=== PATIENT | male | born 1990 | race Caucasian/White ===

== ENCOUNTER 2021-11-28 15:27 | Inpatient (IN) ==
--- NOTE | 2021-11-28 16:32 | XRay Report ---
XR hand LT min 3V routine CLINICAL HISTORY: possible amputation to left hand. Left index finger injury. COMPARISON STUDY: None. FINDINGS: Comminuted and displaced fractures involving the base of the middle phalanx and head of the proximal phalanx of the left index finger. There is ulnar dislocation at the PIP joint of the left i ndex finger. There is associated soft tissue laceration at this location. Remaining fingers appear in tact. No radiopaque foreign bodies. IMPRESSION: Fracture/dislocation at the PIP joint of the left index finger as described above. ACT 112: Negative or not required by law. Electronically signed by: David Porter M.D. 11/28/2021 4:31 PM
[2021-11-28] MEDS ORDERED: ceFAZolin 2000MG 2,000 MG/15 ML SYR IV STA (16:39)
[2021-11-28] MEDS ORDERED: DIPHTHERIA/TETANUS/PERTUSSIS 0.5 ML SYR/VIAL IM ONE (16:39)
[2021-11-28] MEDS ORDERED: HYDROmorphone INJ 0.5 MG/0.5 ML SYR IV STA (17:04)
[2021-11-28] MEDS ORDERED: GELATIN SPONGE 12-7MM ONE (17:20)
--- NOTE | 2021-11-28 17:27 | Emergency Department Note ---
Impression & Plan Fracture of phalanx of left index finger ED Provider Note CHIEF COMPLAINT: Left finger laceration HISTORY OF PRESENT ILLNESS: Gerry Santiago is a 31 year old right hand dominant male who presents to the Emergency Department for evaluation of a laceration to the second digit on his left hand which he sustained when he accidentally slipped while using a large saw to cut wood just prior to arrival. He did note a moderate amount of bleeding from the wound which he was eventually able to control after wrapping it with a towel. Currently, he rates his discomfort as a 2/10 which was improved after taking a dose of ibuprofen prior to arrival. He does have sensation in his finger tip distal to the wound but he is unable to move it. He denies sustaining any other wounds or injuries during the episode. No other acute complaints. The patient states that he last had a tetanus booster about 8 years prior. REVIEW OF SYSTEMS: 10 systems were reviewed and were negative unless otherwise stated in HPI as above PHYSICAL EXAM: VITALS: Vitals are noted on the nurse's note and reviewed by myself. Vital signs stable. General: Resting in bed, no acute distress Head/Eyes: Normocephalic, atraumatic, PERRL, EOMI MSK/Integumentary: With attention to the LUE, there is a 3 cm macerated lacerati on to the 2nd digit extending over the PIP with visible bone and slow ooze of blood. Sensation intact distal to the wound, capillary refill <3 seconds. Unable to move the 2nd digit. No other appreciable wounds, moving all other digits, hand and remainder of the LUE without apparent pain or difficulty Neuro: Awake, alert and oriented x 3, interacting and answering questions appropriately Differential diagnosis includes fracture, subluxation, dislocation, ligamentous injury, neurovascular, as well as other pathologies were considered. EMERGENCY DEPARTMENT COURSE: Physical exam and history were performed. Nursing triage notes, EMR, and medication list were personally reviewed. Patient appears to have sustained a laceration to the second digit of his left hand when he accidentally slipped while using a large saw to cut wood just prior to arrival. He last received a tetanus booster about 8 years prior. Additional history as described above. On exam, he was resting in bed, no acute distress. With attention to the LUE, there was a 3 cm macerated laceration to the second digit extending over the PIP with visible bone and slow ooze of blood consistent with open fracture. Sensation was intact distal to the wound, capillary refill <3 seconds. He was unable to move the second digit. He did not have any other appreciable wounds he was moving all her digits and hand without apparent pain or difficulty. No other significant findings on exam as above. IV access was established. The patient was given Ancef 2 g and Dilaudid 0.5 mg. His tetanus status was also updated. I did contact Chris Thomas PA-C who is currently working with Dr. Mendenhall of [facility]. They immediately arrived to bedside. After there examination, they recommended surgical intervention, to which the patient consented. The patient was then taken to the operating room for further management and disposition thereafter. The patient verbalized his understanding and agreement with the treatment plan as above. The chart was completed utilizing [employer] Speech Voice Recognition Software. Grammatical errors, random word insertions, pronoun errors, and incomplete sentences are an occasional consequence of this system due to software limitations, ambient noise, and hardware issues. Any formal questions or concerns about the content, text, or information contained within the body of this dictation should be directly addressed to the provider for clarification. Past Med/Surg History Medical History Breathlessness lying flat Heartburn Migraine Surgical History No pertinent past surgical history Family History (Updated 11/28/21 @ 17:57 by Chris Thomas PA-C) Other No pertinent family history Social History Smoking Status: Current every day smoker Tobacco Type: Pipe Hx Alcohol Use: No Hx Substance Use: No Preferred Language: Mosotho Hearing Ability: Normal Beliefs That Will Affect Care: Muslim Muslim Beliefs: shinto marital status: Current Living Situation: Spouse current occupational status: employed Feels Safe at Home: Yes Allergies Allergies Allergy/AdvReac Type Severity Reaction Status Date / Time No Known Allergies Allergy Unverified 02/03/14 18:10 Home Meds Home Medications Medication Instructions Recorded Confirmed None (Patient States No Home Meds) #0 02/03/14 Previous Rx's Medication Instructions Recorded CIPROFLOXACIN HCL (CIPRO) 500 mg PO BID 7 Days #0 02/03/14 Results & Data (ED) Vital Signs Vital Signs - 24 hr 11/28/21 16:06 11/28/21 17:29 11/28/21 18:01 Temperature 36.5 C Temperature Source Temporal Artery Scan Pulse Rate 79 Pulse Rate [Finger] 68 61 Pulse Rhythm Regular Respiratory Rate 18 16 19 Respiratory Effort / Characteristics Non-Labored Non-Labored Spontaneous Non-Labored Spontaneous Respiratory Depth Normal Normal Normal Respiratory Pattern Regular Blood Pressure 154/77 H Blood Pressure [Right Arm] 152/85 H 106/76 Blood Pressure Mean 102 Blood Pressure Mean [Right Arm] 107 86 Pulse Oximetry 95 97 97 Oxygen Delivery Method Room Air Room Air Room Air Sepsis Recent Fever Within 48 Hours No Sepsis New/Unexplained Change in Mental Status No Sepsis Action Taken by Nursing No Action Required Laboratory Data Lab Results 11/28/21 Range/Units 17:30 SARS-CoV-2, RNA, NAAT NEGATIVE (NEGATIVE) Administered Medications Discontinued Medications Diphtheria/Pertussis/Tetanus Vacc (Diphtheria/Tetanus/Pertussis 0.5 Ml Syr/Vial) 0.5 ml IM .ONCE ONE Stop: 11/28/21 16:40 Last Admin: 11/28/21 16:56 Dose: 0.5 ml Documented by: [id number] Gelatin (Gelatin Sponge 12-7mm) Confirm Administered Dose 1 ea .ROUTE .STK-MED ONE Stop: 11/28/21 17:21 Last Admin: 11/28/21 17:23 Dose: 1 ea Documented by: [id number] Hydromorphone HCl (Hydromorphone Inj 0.5 Mg/0.5 Ml Syr) 0.5 mg IV NOW STA Stop: 11/28/21 17:05 Last Admin: 11/28/21 17:07 Dose: 0.5 mg Documented by: [id number] Cefazolin Sodium (Ancef 2000mg) 2,000 mg in 15 mls @ 3.75 mls/min IV NOW STA Stop: 11/28/21 16:42 Last Admin: 11/28/21 17:04 Dose: 3.75 mls/min Documented by: [id number] Imaging Data Radiologist's Impression: Hand X-Ray 11/28/21 16:12 XR hand LT min 3V routine CLINICAL HISTORY: possible amputation to left hand. Left index finger injury. COMPARISON STUDY: None. FINDINGS: Comminuted and displaced fractures involving the base of the middle phalanx and head of the proximal phalanx of the left index finger. There is ulnar dislocation at the PIP joint of the left index finger. There is associated soft tissue laceration at this location. Remaining fingers appear intact. No radiopaque foreign bodies. IMPRESSION: Fracture/dislocation at the PIP joint of the left index finger as described above. ACT 112: Negative or not required by law. Electronically signed by: David Porter M.D. 11/28/2021 4:31 PM Discharge Plan Visit Data Chief Complaint: Laceration/Cut (Suture/Dermabond) Stated Complaint: LAC ON LT HAND ED Provider: Gurinder Bahena ED Midlevel Provider: Jenae Seth Patient Disposition: Being Evaluated by Surgeon Forms Stand Alone Forms: [employer] [facility] [employer] Prescriptions Prescriptions: No Action None (Patient States No Home Meds) . Qty: 0 RF: 0 CIPROFLOXACIN HCL (CIPRO) 500 MG tablet 500 mg PO BID 7 Days Qty: 0 RF: 0 Referrals Referrals: PCP,NO [Primary Care Provider] -
--- NOTE | 2021-11-28 17:51 | Anesthesiology Consultation ---
Date of Service November 28, 2021 Assessment & Plan (1) Encounter for pre-operative examination: Chart Review Chart Review: Acceptable Risk for Surgery and Patient NOT seen in Pre Admission Testing Consults Requested none History Surgery Operation Date: 11/28/21 17:45 Proposed Procedures p Amputation Finger(Left) - Sam Mendenhall MD Height/Weight Height: 5 ft 8 in Weight: 94.6 kg Allergies Allergy/AdvReac Type Severity Reaction Status Date / Time No Known Allergies Allergy Unverified 02/03/14 18:10 Medications Home Medications Medication Instructions Recorded Confirmed Last Taken CIPROFLOXACIN HCL (CIPRO) 500 mg PO BID 7 Days #0 02/03/14 Unknown None (Patient States No Home Meds) #0 02/03/14 Unknown Social History Smoking Status: Current every day smoker Physical Exam Vital Signs Last Vital Signs Temp 97.7 F 11/28/21 16:06 Pulse 68 11/28/21 17:29 Resp 16 11/28/21 17:29 BP 152/85 H 11/28/21 17:29 Pulse Ox 97 11/28/21 17:29
--- NOTE | 2021-11-28 18:06 | History & Physical Report ---
Date of Service November 28, 2021 Assessment & Plan (1) Fracture of phalanx of left index finger: Plan: IV has already been established. Patient's tetanus has been updated. He has been given Ancef IV in the ED. He last ate at noon and states he had a full lunch. He did have a glass of water just prior to coming to the ED. This was just over an hour ago. Patient does admit to history of shortness of breath when he lies flat. He states it occurs occasionally, but has not happened for several months. He has never been worked up for it. He is a daily pipe smoker, but does not think it is related. He states he has also had some episodes of chest pain in the past. He states it was infrequent and may have occurred once a month. It also has not happened for several months. Options for treatment of the index finger were reviewed thoroughly with him, by Dr. Mendenhall. Options of trying to salvage the finger, completion of the amputation, as well as risks of both, were discussed. Patient elected to proceed with amputation due to speed of recovery and the risk of a stiff and nonfunctioning finger if he elected salvage. His was present for this discussion. He will remain n.p.o. Covid test has been ordered. History of Present Illness Chief Complaint: Left hand laceration and deformity Primary Care Provider: NO PCP This 31-year-old male presents today with his , for evaluation of his left hand. He is seen in the ED. Patient states he accidentally pushed his hand into the blade at his sawmill, and sustained a laceration and deformity of the index finger. No other fingers are involved. He states the board did not kick. He simply was not paying attention to where his hand was. His last tetanus is unknown. He notes numbness in the index finger. He denies loss of sensation in the other digits. No other complaints. [id number]. Allergies Allergy/AdvReac Type Severity Reaction Status Date / Time No Known Allergies Allergy Unverified 02/03/14 18:10 Home Medications Medication Instructions Recorded Confirmed Type CIPROFLOXACIN HCL (CIPRO) 500 mg PO BID 7 Days #0 02/03/14 Rx None (Patient States No Home Meds) #0 02/03/14 History Past Med/Surg History Medical History (Updated 03/30/22 @ 18:02 by Chris Thomas PA-C) Breathlessness lying flat Heartburn Migraine Surgical History (Updated 11/28/21 @ 17:57 by Chris Thomas PA-C) No pertinent past surgical history Family History (Updated 11/28/21 @ 17:57 by Chris Thomas PA-C) Other No pertinent family history Social History (Updated 11/28/21 @ 17:58 by Chris Thomas PA-C) Smoking Status: Current every day smoker Tobacco Type: Pipe Hx Alcohol Use: No Hx Substance Use: No Preferred Language: Serbian Hearing Ability: Normal Beliefs That Will Affect Care: Mosque Mosque Beliefs: [facility] marital status: Current Living Situation: Spouse current occupational status: employed Feels Safe at Home: Yes Review of Systems Review of Systems: All systems reviewed & are unremarkable except as noted in HPI & below A total of 10 systems were reviewed. Physical Exam Physical Exam: General: Well-developed, well-nourished, young white male, in obvious discomfort. No acute distress. Laying on the bed. Alert and oriented. Skin: Warm and dry with good turgor. No rashes. Patient has a large laceration with active bleeding on the radial aspect of his index finger. Bone is exposed. The other digits are spared. HEENT: Normocephalic atraumatic. Eyes PERRLA, EOMI. No conjunctiva or scleral injection. Nares patent bilaterally without turbinate enlargement. No significant drainage. No epistaxis. Oropharynx without erythema or exudate. Uvula midline, oral mucosa moist. No lesions present. Upper dentures are present. Heart: Heart RRR. No MGR. Peripheral pulses are 2+. Lungs: Lungs are clear to auscultation. No crackles rhonchi or wheezing. Good air movement. The patient is able to take a deep breath. Abdomen: Abdomen was inspected, auscultated, and palpated. Bowel sounds present x 4. Soft, nontender to palpation. No hepato-splenomegaly. No masses noted. No rebound. Musculoskeletal: Patient has intact motor function to his thumb, long, ring, and little fingers of the left hand. He has intact flexion to the DIP joint of the index finger, with pain. He lacks extension to the index finger. There is a large amount of tissue missing from the radial aspect of the index finger. Bleeding is active. It is ulnarly deviated secondary to the loss of tissue. Neurologic: Patient has intact sensation to the thumb, long, ring, and little f ingers. Sensation is normal. He lacks normal sensation to the index finger. There is blunted sensation on the ulnar tip, and absent sensation on the radial aspect. Capillary refill is equal to the other digits. Results & Data Results & Data ([facility]) Vital Signs (Past 12 Hours) Vital Signs Temp Pulse Pulse Resp BP BP Pulse Ox 11/28/21 17:29 68 16 152/85 H 97 11/28/21 16:06 36.5 C 79 18 154/77 H 95 Diagnostic Findings Radiographic imaging previous obtained of the left hand shows an open fracture of the index finger at the PIP joint. There is bone loss as well as comminution. Code Status & VTE Plan VTE Prophylaxis Plan VTE Prophylaxis will be ordered: Yes
--- NOTE | 2021-11-28 18:13 | Progress Notes ---
DATE OF SERVICE: 11/28/2021. The patient is seen in conjunction with Chris Thomas. For further details, refer to his dictation. He and I saw and evaluated together. I am in agreement with the plan. Mr. Santiago is 31 years old, right hand dominant. He injured the left index finger when he was ca ught in a large saw earlier today. He has just received tetanus and was receiving antibiotics. His past medical history is significant for Lyme disease. He had a laceration of his left shoulder, but he has never had surgery and denies having any allergies. He denies any chronic medical problems. Examination of his left hand reveals after cleaning up the hand at the thumb, long, ring, and little fingers are uninvolved. There is a large laceration beginning just proximal to the PIP joint on the radial side of the left index finger, which courses dorsally. The metacarpal head was exposed and pa rt of the articular surface has been traumatically removed. There is an active pumper distally and d orsally, which we attempted to electrocauterize without benefit. Then applied Gelfoam and pressure w ith a covered bandage. He has diminished sensation on the radial side. Intact sensation on the ulna r side. The laceration is probably 4 cm in length. There appears to be some degree of tissue loss. It is about 2 cm wide. He can slightly flex the tip of the finger, but has difficulty with extensio n. There is capillary refill intact to the index finger. The radiographs show a comminuted fracture involving the proximal interphalangeal joint of the left i ndex finger with some degree of bone loss. The impression is that the patient has a comminuted open fracture of the left index finger proximal i nterphalangeal joint with a dislocation and soft tissue loss. There is also likely neurovascular and tendon injury. Technically, this would potentially be a grade III open fracture as there may not be adequate soft tissue coverage for closure due to tissue loss. PLAN: My findings were discussed with the patient and his . We presented him with several optio ns, one of which is to be transferred to a tertiary care medical center where he may receive expertis e and advanced hand care for potential salvage of the finger, which would include reconstruction of t he bone, tendons, nerves, arteries, etc. This may involve multiple procedures. It may involve exten sive rehabilitation and increased expenses. It may result in a stiff finger. It may not even be pos sible. The other option we presented him with is a possibility of amputation, which he himself raise d. That would be a more cost effective and quicker recovery for him with less therapy and risk. We talked about the pros and cons, the risks and benefits and he elected to proceed with having the fing er amputated. We may need to shorten it beyond the proximal phalangeal head in order to get adequate soft tissue coverage, which I discussed with him. There could be issues with wound problems or pain. I recommend that he stay in the hospital for at least 24 hours after the surgery to have IV antibio tics. He has received tetanus and antibiotics here. He will be made n.p.o. and taken to the operati ng room urgently when the room is available here. An informed consent was obtained. No history of b leeding, blood clots, metal allergies or MRSA. Job ID: [id number]
[2021-11-28] MEDS ORDERED: SUCCINYLCHOLINE CHLORIDE 20 MG/ML 10 ML VIAL IV ONE (18:21)
[2021-11-28] MEDS ORDERED: ONDANSETRON INJ 2 MG/ML 2 ML VIAL ONE (18:21)
[2021-11-28] MEDS ORDERED: DEXAMETHASONE SOD INJ 4 MG/ML VIAL ONE (18:21)
[2021-11-28] MEDS ORDERED: PROPOFOL IV EMULSION 10 MG/ML 20 ML VIAL IV ONE (18:21)
[2021-11-28] MEDS ORDERED: fentaNYL citrate 100 MCG/2 ML VIAL ONE (18:21)
[2021-11-28] MEDS ORDERED: MIDAZOLAM HCL 1 MG/ML 2ML VIAL ONE (18:21)
[2021-11-28] MEDS ORDERED: LIDOCAINE 2% 2 ML VIAL/AMP(20MG/ML) INFIL ONE (18:21)
[2021-11-28] MEDS ORDERED: ROCURONIUM BROMIDE 10 MG/ML 5 ML VIAL IV ONE (18:21)
[2021-11-28] MEDS ORDERED: ePHEDrine sulfate 50 MG/ML AMP IV PRN (18:32)
[2021-11-28] MEDS ORDERED: ATROPINE SULFATE 0.1 MG/ML 10ML SYR IV PRN (18:32)
[2021-11-28] MEDS ORDERED: ONDANSETRON INJ 2 MG/ML 2 ML VIAL IV PRN ×2 (18:32→21:42)
[2021-11-28] MEDS ORDERED: fentaNYL citrate 100 MCG/2 ML VIAL IV PRN (18:32)
[2021-11-28] MEDS ORDERED: BUPIVACAINE 0.5 % 5 MG/1 ML MPF 30ML VIAL ONE (18:46)
[2021-11-28] MEDS ORDERED: LIDOCAINE 1% LOCAL 20 ML VIAL ONE (18:46)
--- NOTE | 2021-11-28 19:54 | Fluoroscopy Report ---
FL finger LT 2V CLINICAL HISTORY: LT INDEX FINGER AMPUTATION COMPARISON STUDY: Left hand 11/28/2021. FLUOROSCOPY TIME: 1 second. FINDINGS: Single fluoroscopic spot image of the left index finger demonstrates amputation at the neck of the proximal phalanx. IMPRESSION: Fluoroscopic assistance provided for amputation at the neck of the left index finger prox imal phalanx. ACT 112: Negative or not required by law. Electronically signed by: David Porter M.D. 11/28/2021 7:52 PM
--- NOTE | 2021-11-28 20:21 | Operative Report ---
Post Operative Report Pre & Post Diagnosis Operation Date: 11/28/21 17:45 Pre-Op Diagnosis: Open fracture of left index finger proximal interphalangeal joint with 5 cm x 2- 1/2 cm wound and a probable insufficient soft tissue coverage. Post-Op Diagnosis: Same I identified the patient and participated in the time-out.: Yes Procedure Operation Date: 11/28/21 17:45 Actual Procedures p irrigation and debridement, amputation Finger, Left Index(Left) - Sam Mendenhall MD Surgeon Sam Mendenhall MD Survey Questionnaire Designer Chris Thomas physicians pharmacist assistant no resident or fellow available Estimated Blood Loss 5 Findings Consistent with Post-Op Diagnosis Specimens Amputated left index finger Anesthesia Type General Regional Complications none Disposition Accompanied Patient To Recovery: No Disposition: Recovery Room Indications The patient is 31. He sustained a industrial saw accident to his left index finger when he slipped. He has a large wound on the radial aspect of his left index finger at the level of the PIP joint. This is approximately 5 x 3 cm with soft tissue loss open fracture of the PIP joint with bone loss and comminution. There is likely extensor tendon loss as well although flexor function appears to be intact. We talked about salvaging the finger which would involve more complex surgery and rehabilitation if at all possible. I offered transfer to a tertiary care center with a hand specialist. We talked about the pros and cons and he wished to proceed with a more simpler option which was to amputate the finger. Description of Procedure Informed consent obtained. Patient identified. He identified the operative site as the left index finger. I marked with my initials. A preoperative surgical timeout was performed. A preop dose of antibiotics was given. He was taken to the operating room positioned supine on the operating room table. The left arm suspended on a hand table and a tourniquet was applied to the left upp er arm. There was pulsatile bleeding from the distal dorsal portion of the wound upon removing the dressing. The hand was prescrubbed with Betadine and fingernails were cleaned. We then prepped with Betadine and then draped in a sterile fashion as usual. The limb was then exsanguinated and tourniquet inflated 250 mmHg. The examination revealed a 5 cm long x2-1/2 to 3 cm wide soft tissue laceration over the radial aspect of the left index finger. There appeared to be inadequate soft tissue coverage for a general closure as some of the tissue appeared to be lost. There is also a substantial bone loss. DVT prophylaxis was not indicated. He received tetanus and IV antibiotics. There was good capillary refill in the distal digit although it was grossly unstable due to the complex fracture. There were fragments of the articular surface of the PIP joint somewhat loose through the wound. These were debrided. The proximal radial corner of the middle phalanx including its articular surface was completely absent and this carried up the shaft for about 1 cm. The head of the proximal phalanx was fractured and completely from the proximal portion with some comminution and bone loss. The extensor tendon was segmentally absent. The flexor tendons appeared to be intact. Given the appearance I think amputation is favored over a complex reconstruction with deficient soft tissue coverage. I removed the bone fragments. The proximal phalanx was amputated just proximal to the volar flare of the condyle and then trimmed to remove any bony prominences. Subperiosteal exposure of this part of the bone was performed. I then made an incision down the dorsal radial border of the finger down to the level of the DIP joint and then circumferentially went around the finger. I then filleted out the middle phalanx in subperiosteal fashion and amputated the finger tuft distal phalanx and middle phalanx is 1 piece sent for specimen. I then dissected out the flexor tendons back to the level of the volar plate. I then transected the flexor tendons just proximal to the volar plate. Margins of the wound were debrided. There were irregular edges which were sharply debrided with scissors and scalpel. Any gross contamination which there was very little of was removed as encountered. Irrigation with about 500 cc of Betadine lavage followed by a liter and a half of pulsatile lavage was performed. There was adequate soft tissue to cover. I reapproximated the proximal radial portion of the laceration. I was then able to convert the rest of the wound to a simple foot [place] bringing the palmar tissues dorsally to reapproximate dorsally. The skin edges were trimmed medially and laterally and the remaining distal tissue was resected. After reapproximating the tourniquet was let down and meticulous hemostasis was performed. Irrigation was again performed and then the skin was closed in a complete and tension-free fashion using 4-0 nylon with simple sutures and horizontal mattress stitches. The finger was anesthetized with a mixture of 0.5% Marcaine and 1% plain lidocaine. The hand was cleaned with wet and dry sponges and a bulky soft sterile dressing was applied Xeroform 4 x 4's soft wrap and Grzegorz wrap. Patient awakened from anesthesia without difficulty taken to recovery in stable condition. The resected finger was sent for specimen. Counts were correct blood loss is estimated to be 5 cc. At the conclusion the operation spoke to patient's informed her of my findings and postop instructions were given. Oil Derrick Operator fluoroscopic image was obtained after the amputation. Several pictures were obtained prior to the start of the procedure. He will be admitted to the hospital for pain control and intravenous antibiotics. There is good refill in the flap. The digital nerves were dissected out and transected at the level of the bone and allowed to retract. I attest to the content of the Intraoperative Record and any orders documented therein. Any exceptions are noted below.
--- NOTE | 2021-11-28 20:26 | Operative Report ---
Post Operative Report Pre & Post Diagnosis Operation Date: 11/28/21 17:45 Pre-Op Diagnosis: Laceration On Left Hand Post-Op Diagnosis: Laceration On Left Hand I identified the patient and participated in the time-out.: Yes Procedure Operation Date: 11/28/21 17:45 Actual Procedures p Amputation Finger, Left Index(Left) - Sam Mendenhall MD Surgeon JOSUE Mendenhall MD [employer] Chris Thomas physician assistant clinical nurse manager no resident or fellow available Estimated Blood Loss 5 Findings Consistent with Post-Op Diagnosis see operative report Specimens see operative report Drains none Complications none Disposition Accompanied Patient To Recovery: Yes Indications This 31-year-old male presented through the ED, for evaluation of a left hand injury sustained on a sawmill. Patient was educated regarding risks, and benefits of surgery. He elected to proceed with surgical intervention. Preoperative imaging was obtained. Description of Procedure Patient was taken to the operating room where he was given general anesthesia. He was also given a local digital block. He was prepped and draped in the usual sterile fashion. Please see Dr. Mendenhall's operative report for specifics of the procedure. I was present for the entire case from initial patient positioning through final wound closure. Assistance was provided in tissue retraction, hemostasis, revision of the amputation, and final wound closure. Patient was taken to the recovery room in satisfactory condition. I attest to the content of the Intraoperative Record and any orders documented therein. Any exceptions are noted below.
--- NOTE | 2021-11-28 21:27 | Anesthesiology Progress Note ---
Date of Service November 28, 2021 Anesthesia Post Procedure Vital Signs Vital Signs: Temp Pulse Pulse Pulse Resp BP BP 11/28/21 21:20 62 16 134/83 11/28/21 21:10 62 16 134/83 11/28/21 21:00 97.5 F L 61 16 138/79 11/28/21 20:50 65 16 143/85 H 11/28/21 20:40 70 16 132/87 11/28/21 20:30 73 16 141/78 H 11/28/21 20:23 97.3 F L 73 16 140/79 11/28/21 18:23 99.1 F 63 14 151/82 H 11/28/21 18:01 61 19 106/76 11/28/21 17:29 68 16 152/85 H 11/28/21 16:06 97.7 F 79 18 154/77 H Pulse Ox 11/28/21 21:20 98 11/28/21 21:10 98 11/28/21 21:00 97 11/28/21 20:50 97 11/28/21 20:40 98 11/28/21 20:30 99 11/28/21 20:23 97 11/28/21 18:23 98 11/28/21 18:01 97 11/28/21 17:29 97 11/28/21 16:06 95 Pain Intensity Left 2nd Digit: Pain Intensity: 2 Transfer of Care Handoff Completed per policy Notes Mental Status: alert / awake / arousable and participated in evaluation Patient Amnestic to Procedure: Yes Nausea / Vomiting: adequately controlled Pain: adequately controlled Airway Patency, RR, SpO2: stable & adequate BP & HR: stable & adequate Hydration State: stable & adequate Anesthetic Complications: no major complications apparent and Pt Satisfied with anesthetic care
[2021-11-28] MEDS ORDERED: SENNA 8.6 MG TAB PO SCH (21:42)
[2021-11-28] MEDS ORDERED: SODIUM CHLORIDE 0.9% 1000ML 1,000 ML IV SCH (21:42)
[2021-11-28] MEDS ORDERED: HYDROmorphone INJ 0.5 MG/0.5 ML SYR IV PRN (21:42)
[2021-11-28] MEDS ORDERED: METOCLOPRAMIDE HCL INJ 5 MG/ML 2 ML VIAL IV PRN (21:42)
[2021-11-28] MEDS ORDERED: KETOROLAC 30 MG/ML VIAL IV PRN (21:42)
[2021-11-28] MEDS ORDERED: NALOXONE HCL 0.4 MG/1 ML VIAL/CARP IV PRN (21:42)
[2021-11-28] MEDS ORDERED: diphenhydrAMINE Capsule 25 MG CAP PO PRN (21:42)
[2021-11-28] MEDS ORDERED: ALUMINUM/MAGNESIUM SUSP 30 ML UDC PO PRN (21:42)
[2021-11-28] MEDS ORDERED: traMADol HCL 50 MG TABLET PO PRN (21:42)
[2021-11-28] MEDS ORDERED: MAGNESIUM HYDROXIDE SUSP 30 ML UDC PO PRN (21:42)
[2021-11-28] MEDS ORDERED: bisacodyL 10 MG SUPP PR PRN (21:42)
[2021-11-28] MEDS: DOCUSATE SODIUM 100 MG CAP PO SCH (23:06)
[2021-11-28] MEDS: oxyCODONE HCL IR 5 MG TAB (IMMEDIATE RELEASE) PO PRN (23:14)
[2021-11-29] MEDS ORDERED: ceFAZolin 1000MG 1,000 MG/7.5 ML SYR IV SCH
[2021-11-29] MEDS: ceFAZolin 2000MG 2,000 MG/15 ML SYR IV SCH ×2 (07:42→14:26)
[2021-11-29] MEDS: DOCUSATE SODIUM 100 MG CAP PO SCH (07:50)
[2021-11-29] MEDS ORDERED: MULTIVITAMIN TAB PO SCH (09:00)
--- NOTE | 2021-11-29 09:57 | Orthopedic Progress Note ---
Date of Service November 29, 2021 Assessment & Plan (1) Status post amputation of finger of left hand: Plan: Patient received his last dose of antibiotics at 742 this morning. His next dose should be around 4 PM. Patient would like to go home after it is administered. I will speak with Dr. Mendenhall about this. He will evaluate the patient later today. Continue with elevation for edema and pain control Follow-up in the office in 2 weeks for suture removal. Admission and Anticipated Discharge Date Admission Date: November 28, 2021 Subjective Patient is seen in his room this morning. He has no complaints. He states his hand feels fine. He has no pain. He would like to go home today. He denies any shortness of breath, nausea, vomiting, or abdominal pain. Review of Systems Review of Systems: Unchanged from yesterday. Physical Exam Physical Exam: General: Well-developed, well-nourished, young male, in no acute distress. Laying in bed. Conversive. Happy this morning. Skin: Warm and dry with good turgor. No rashes. Patient has an intact postsurgical dressing on his left hand. There is no visible bleeding. Dressings were left in place. Musculoskeletal: Patient has intact motor function of his thumb, long, ring, and little fingers. Neurologic: Gross sensation is intact across the thumb, long, ring, and little fingers. Results & Data ([facility]) Vital Signs (Past 12 Hours) Vital Signs Temp Pulse Resp BP Pulse Ox 11/29/21 07:29 36.9 C 53 L 18 112/57 L 96 11/29/21 04:40 37.0 C 53 L 16 124/61 97 11/29/21 00:40 36.6 C 63 16 109/57 L 97 11/28/21 23:40 36.6 C 51 L 14 126/65 95 11/28/21 22:40 36.5 C 66 16 122/69 97 11/28/21 22:10 37.2 C 66 14 123/63 97
--- NOTE | 2021-11-29 11:36 | Discharge Summary ---
Date of Service November 29, 2021 Admission HPI Per Admitting Provider This 31-year-old male presents today with his , for evaluation of his left hand. He is seen in the ED. Patient states he accidentally pushed his hand into the blade at his sawmill, and sustained a laceration and deformity of the index finger. No other fingers are involved. He states the board did not kick. He simply was not paying attention to where his hand was. His last tetanus is unknown. He notes numbness in the index finger. He denies loss of sensation in the other digits. No other complaints. [id number]. Discharge Data Procedures Performed Operation Date: 11/28/21 17:45 Actual Procedures p Amputation Finger, Left Index(Left) - Sam Mendenhall MD Hospital Course (1) Status post amputation of finger of left hand: Patient was admitted to [facility] on November 28, 2021 after presenting to the emergency room with an acute injury to his left hand. He states that he was using a saw and his hand went into the blade. He had immediate pain and bleeding. He presented to the emergency room with a large open wound over his left index finger approximately 5 cm x 2-1/2 cm in size. He also had deformity of his left index finger and was found to have an open PIP joint fracture, X-rays also showed a comminuted proximal phalanx fracture. Orthopedics was called for an urgent consult in the emergency room. He was seen by Dr. Mendenhall. Surgical intervention was discussed and recommended urgently. He wished to proceed with surgery here at [facility]. Options were discussed such as irrigation, debridement and transfer to tertiary center. Due to the large wound and probable inadequate tissue coverage amputation was discussed. He agreed to proceed with the irrigation, debridement and amputation of his left index finger. This was performed on November 28, 2021 under general anesthesia. He tolerated the procedure well without any intraoperative complications. He was given 2 g of IV Ancef every 8 hours for 24 hours after surgery. He was given a regular diet postoperatively. He was allowed out of bed, weight-bear as tolerated bilateral lower extremities but nonweightbearing on his left hand. He was encouraged to keep his hand elevated above his heart as well as ice it for swelling. He tolerated regular diet during his inpatient stay. His pain was well controlled on Tylenol and Toradol. He states that his pain was well controlled without any other pain medication. On postoperative day 1 he was reevaluated and his motor and sensory functions were normal to the remaining fingers on his left hand. He had full range of motion of his left elbow. His dressings were clean and dry but not changed. Discharge instructions were reviewed with the patient. He would like to go home today which I think is appropriate but we elected to have him complete his postoperative IV antibiotics which his last dose was at 3 PM. He was then discharged to his home in stable condition. He will follow-up as an outpatient on Friday, December 03, 2021 for dressing change. He was instructed to call with any increased pain, swelling, fevers, chills or drainage. Discharge instructions will be provided at the time of discharge. He understands agrees with plan.
[2021-11-29] MEDS: oxyCODONE HCL IR 5 MG TAB (IMMEDIATE RELEASE) PO PRN (13:23)
--- NOTE | 2021-11-29 21:37 | Electrocardiogram Report ---
Test Reason : Blood Pressure : / mmHG Vent. Rate : 063 BPM Atrial Rate : 063 BPM P-R Int : 150 ms QRS Dur : 106 ms QT Int : 380 ms P-R-T Axes : 018 072 059 degrees QTc Int : 388 ms Normal sinus rhythm RSR' or QR pattern in V1 suggests right ventricular conduction delay Borderline ECG No previous ECGs available Confirmed by Rubin Ruiz ([id number]) on 11/29/2021 9:37:28 PM Referred By: REFERRED SELF Confirmed By:Rubin Ruiz
== END 2021-11-29 16:04 | disposition home or self-care (01) | DRG 514 ==
LOC: ED 15:27 → OR 18:11 → 3N 20:25
DX: Z23 Encounter for immunization; Y92.69 Other specified industrial and construction area as the place of occurrence of the external cause; Y93.H9 Activity, other involving exterior property and land maintenance, building and construction; S62.621B Displaced fracture of middle phalanx of left index finger, initial encounter for open fracture; F17.290 Nicotine dependence, other tobacco product, uncomplicated; W31.2XXA Contact with powered woodworking and forming machines, initial encounter